=== PATIENT | female | born 2005 | race African-American/Black ===

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

== ENCOUNTER 2023-03-20 08:24 | Emergency (ER) | payer OTHER, SELFPAY ==
--- NOTE | ~2023-03-20 | XR_ITS ---
EXAMINATION: XR knee LT 3V DATE: 03/20/2023 09:14 INDICATION: Nontraumatic medial left knee pain with TECHNIQUE: Anteroposterior, oblique and crosstable lateral views of the left knee were obtained COMPARISON: None. FINDINGS: Alignment is normal. No fracture. No joint effusion/layering lipohemarthrosis. Soft tissues are unre markable. IMPRESSION: 1. Normal left knee radiographs Reviewed, dictated and finalized at location A.
[2023-03-20 08:30] VITALS: BP 148/75; PULSE 86; RESP 16; TEMP 36.7; O2SAT 100
[2023-03-20] MEDS: IBUPROFEN 600 MG TABLET PO (08:52)
--- NOTE | 2023-03-20 10:17 | ED.EXTPRO ---
HPI - Extremity Problem General Chief complaint: Extremity Problem,Nontraumatic Stated complaint: knee pain Time Seen by Provider: 03/20/23 08:37 History of Present Illness HPI Narrative: Patient is a 17-year-old female who presents ER with left knee pain. Worsening over last couple days. She works at [employer] and thinks she is having increased pain from her duties there where she is lifting boxes. No known trauma. No swelling. No numbness or tingling. She hurts mainly on the medial aspect when she is bearing weight. She has tried a knee wrap that her family member provided her. Related Data Home Medications Medication Instructions Recorded Confirmed sertraline 25 mg tablet 25 mg DIRECTED 11/27/22 11/27/22 drospirenone 3 mg-ethinyl tablet 12/24/22 estradiol 0.02 mg tablet Allergies Allergy/AdvReac Type Severity Reaction Status Date / Time nickel Allergy Unknown Other Verified 03/20/23 08:45 Review of Systems Constitutional: Constitutional: Denies chills and Denies fever(s) Musculoskeletal: Musculoskeletal: Reports arthralgias, Denies joint swelling and Denies muscle cramps Neurologic: Denies focal weakness, Denies numbness and Denies weakness PMFSH Past Medical History Medical History Menorrhagia Surgical History Surgical History No pertinent past surgical history Social History Social History Smoking status: Never smoker Alcohol intake: never Substance use: never Living arrangements: with family Occupation/Education: student Exam Narrative: GENERAL: Well-appearing, well-nourished, and in no acute distress. HEAD: Normocephalic, atraumatic. EXTREMITIES: Normal range of motion. No edema. Mild tenderness medial joint line left knee. Positive Apley grind test on the left side. SKIN: Warm, dry, no rash. NEURO: Alert and oriented x3. PSYCH: Normal mood and affect. Course Course Emergency Course: Patient resting comfortably and pain improving after anti-inflammatories. Discussed conservative treatment at home and patient verbalized understanding. Encouraged weight loss. Discussed need for follow-up with PCP or Ortho should symptoms persist. Vital Signs Vital signs: Vital Signs Temperature 98.1 F 03/20/23 08:30 Pulse Rate 86 03/20/23 08:30 Respiratory Rate 16 03/20/23 08:30 Blood Pressure 148/75 H 03/20/23 08:30 Pulse Oximetry 100 03/20/23 08:30 Temperature 98.1 F 03/20/23 08:30 Pulse Rate 60 03/20/23 10:30 Respiratory Rate 16 03/20/23 10:30 Blood Pressure 126/74 03/20/23 10:30 Pulse Oximetry 100 03/20/23 10:30 MDM - Extremity (Nontraumatic) Imaging Data Radiologist's impression: ITS Impressions Knee X-Ray 03/20/23 09:15 IMPRESSION: 1. Normal left knee radiographs Discharge Plan Discharge Clinical Impression: Knee pain Patient Disposition: Home, Self-Care Condition: Stable Instructions: Knee Pain (ED), P.R.I.C.E. Treatment (ED) Additional Instructions: Return the ER if you have increased pain, your knee becomes red and hot, you develop fever over 100.4 ?F, you have additional concerns. Prescriptions: New naproxen 375 mg tablet 375 mg PO BID Qty: 14 0RF No Action sertraline 25 mg tablet 25 mg DIRECTED drospirenone-ethinyl estradiol 3-0.02 mg tablet amoxicillin-pot clavulanate 875-125 mg tablet 1 tablet PO Q12H 10 Days Qty: 20 0RF Follow-up/Referrals: Jaxson Faust MD [Physician] - 1 Week UNKNOWN,DOCTOR [Primary Care Provider] - 1 Week Stand Alone Forms: Work/School Release IP
[2023-03-20 10:30] VITALS: BP 126/74; PULSE 60; RESP 16; O2SAT 100
== END 2023-03-20 10:45 | disposition home or self-care (01) ==
PROVIDERS: Emergency Provider Emergency Medicine
DX: M25.562 Pain in left knee (principal)
CPT/HCPCS: 73562; 99283; A9270

== ENCOUNTER 2023-06-12 14:37 | Observation (INO) | payer OTHER, SELFPAY ==
[2023-06-12] VITALS (14 sets, daily range): BP systolic 117–158; BP diastolic 61–81; PULSE 77–97; RESP 14–20; TEMP 36.4–37.1; O2SAT 100; BMI 46.2
--- NOTE | 2023-06-12 15:26 | ED.RECABL ---
HPI - Recheck/Abnormal Lab/Rx General Chief Complaint: Recheck/Abnormal Lab/Rx <Soledad Carbajal PA-C - Last Filed: 06/12/23 18:45> Stated Complaint: low hgb <CHARLOTTE Humphreys Last Filed: 06/12/23 18:45> Time Seen by Provider: 06/12/23 15:08 <CHARLOTTE Humphreys Last Filed: 06/12/23 18:45> Source: patient <CHARLOTTE Humphreys Last Filed: 06/12/23 18:45> Mode of arrival: ambulatory <CHARLOTTE Humphreys Last Filed: 06/12/23 18:45> Limitations: no limitations <CHARLOTTE Humphreys Last Filed: 06/12/23 18:45> History of Present Illness HPI narrative: This is a 17 year old female that presents to the ER for anemia. Reports history of heavy/abnormal menstrual bleeding. Reports she had some outpatient labs done this week with her PCP and was told to come to the ER because her hemoglobin is critically low. Does report current menstrual bleeding that is not heavy at the moment. Denies shortness of breath. <CHARLOTTE Humphreys Last Filed: 06/12/23 18:45> Related Data Home Medications: Home Medications Medication Instructions Recorded Confirmed drospirenone 3 mg-ethinyl See Rx Instructions .Route .COMPLEX 12/24/22 06/12/23 estradiol 0.02 mg tablet <CHARLOTTE Humphreys Last Filed: 06/12/23 18:45> Allergies/Adverse Reactions: Allergies Allergy/AdvReac Type Severity Reaction Status Date / Time nickel Allergy Unknown Other Verified 06/12/23 14:40 <CHARLOTTE Humphreys Last Filed: 06/12/23 18:45> Review of Systems Review of Systems: CONSTITUTIONAL: Denies fever RESPIRATORY: Denies dyspnea. NEUROLOGIC: Denies weakness. <CHARLOTTE Humphreys Last Filed: 06/12/23 18:45> All systems reviewed & are unremarkable except as noted in HPI and below <Soledad Carbajal PA-C - Last Filed: 06/12/23 18:45> [facility] Past Medical History Medical History: Medical History (Updated 06/13/23 @ 09:06 by Tello Cummings MD) Menorrhagia <Soledad Carbajal PA-C - Last Filed: 06/12/23 18:45> Surgical History Surgical History: Surgical History No pertinent past surgical history <CHARLOTTE Humphreys Last Filed: 06/12/23 18:45> Social History Social History: Social History Smoking status: Never smoker Alcohol intake: never Substance use: never Do You Feel Safe in your Home?: Yes Lack of Transportation: No Lack of Food: Never True Current Housing: I Have Housing Concerned About Future Housing: No Difficulty Paying Gas/Electric Bills: No Difficulty Paying for Meds: No Currently Unemployed: No Education: High School Diploma/GED Difficulty w/ Childcare or Family Care: No Living arrangements: with family Occupation/Education: student Spiritual care concerns: No <CHARLOTTE Humphreys Last Filed: 06/12/23 18:45> Exam Narrative: GENERAL: Well-appearing, well-nourished, and in no acute distress. HEAD: Normocephalic, atraumatic. EYES: EOMI. CHEST: Clear to auscultation. No respiratory distress. No wheezes rales or rhonchi HEART: Regular rate and rhythm. No murmur heard. Normal peripheral pulses. EXTREMITIES: Normal range of motion. No edema. SKIN: Warm, dry, no rash. NEURO: No focal deficits. Alert and oriented x3. PSYCH: Normal mood and affect PELVIC: Small to moderate amount of dark red blood in the vaginal vault <CHARLOTTE Humphreys Last Filed: 06/12/23 18:45> Course Course Emergency Course: Patient updated on her workup and need for admission. She does not have her control with her <CHARLOTTE Humphreys Last Filed: 06/12/23 18:45> VP PRODUCT/PA Physician Supervision For this patient encounter, I reviewed the VP PRODUCT or PA documentation, treatment plan, and medical decision making and/or I had [id number] time with this patient. I performed all aspects
[2023-06-12 15:38] LABS: Basophils Percent Auto 0.4 % (0.2-1.2); Eosinophils Absolute Auto 0.2 K/mm3 (0-0.3); Eosinophils Percent Auto 1.9 % (0-4.4); Immature Granulocyte Absolute 0.02 K/mm3 (0.00-0.031); Immature Granulocyte Percent A 0.2 % (0-0.5); Lymphocytes Absolute Auto 2.56 K/mm3 (0.9-3.2); Mean Corpuscular HGB Conc 28.2 g/dl (32-36); Mean Corpuscular Hemoglobin 19.5 pg (26-34); Mean Corpuscular Volume 69.1 fl (80-100); Monocytes Absolute Auto 0.5 K/mm3 (0.1-0.6); Monocytes Percent Auto 6.5 % (2.6-8.5); Neutrophils Absolute Auto 4.7 K/mm3 (1.3-6.7); Platelet Count Result 297 k/mm3 (150-375); Red Blood Count 2.98 M/mm3 (4.2-5.4); Red Cell Distribution Width 18.1 % (11.5-14.5)
[2023-06-12 15:48] LABS: Alanine Aminotransferase 26 U/L (6-35); Albumin Level 4.5 g/dL (3.7-5.6); Alkaline Phosphatase 69 U/L (45-116); Anion Gap 8 mmol/L (8-16); Aspartate Amino Transferase 39 U/L (14-36); Bilirubin,Total 0.6 mg/dL (0.2-1.3); Blood Urea Nitrogen 10 mg/dL (8-21); Calcium 9.1 mg/dL (8.9-10.7); Carbon Dioxide 26 mmol/L (22-30); Chloride 105 mmol/L (98-107); Estimated CRCL calculation 120 ml/min; Estimated Glomerular Filt Rate > 60; Glucose 98 mg/dL (65-110); Potassium 3.8 mmol/L (3.4-5.0); Sodium 139 mmol/L (134-143)
[2023-06-12 15:59] LABS: Hemoglobin 5.8 g/dL (12.0-15.0)
[2023-06-12 16:00] LABS: Hematocrit 20.6 % (37.0-47.0)
[2023-06-12 16:01] LABS: Platelet Estimate Adequate (Adequate)
[2023-06-12 16:02] LABS: Schistocytes None Seen (NORMAL)
[2023-06-12 16:03] LABS: Anisocytosis 3+ (NORMAL); Hypochromasia 1+ (NORMAL); Macrocytosis 2+ (NORMAL)
[2023-06-12] MEDS: SODIUM CHLORIDE 0.9% IV 250 ML 30 ML IV CONT (17:37)
[2023-06-12] MEDS: TUBING, BLOOD SET 1 EACH XX (17:37)
[2023-06-12] MEDS: SODIUM CHLORIDE 0.9% IV 250 ML 30 ML (21:30)
[2023-06-12] MEDS: TUBING, BLOOD PLUM PUMP TUBING 1 EACH XX (21:30)
--- NOTE | 2023-06-13 00:06 | PC.NURSE ---
Pt is a&o x4, able to make needs known. Pt received 1 unit of blood in ED, 2nd unit will be started shortly. Pt verbalizes understanding of admission, need for transfusion, orientation to room and call light. Pt advised to call if she needs anything. Pt's vitals stable. Pt is up ad bouchra. All questions answered.
[2023-06-13 00:36] VITALS: PULSE 79; RESP 16; O2SAT 100
--- NOTE | 2023-06-13 02:27 | PC.NURSE ---
urine sample sent to the lab
[2023-06-13 05:25] VITALS: BP 123/63; PULSE 78; RESP 14; TEMP 36.7; O2SAT 100
[2023-06-13 06:58] LABS: Basophils Percent Auto 0.4 % (0.2-1.2); Eosinophils Absolute Auto 0.1 K/mm3 (0-0.3); Eosinophils Percent Auto 1.4 % (0-4.4); Hematocrit 23.5 % (37.0-47.0); Hemoglobin 7.1 g/dL (12.0-15.0); Immature Granulocyte Absolute 0.03 K/mm3 (0.00-0.031); Immature Granulocyte Percent A 0.3 % (0-0.5); Immature Platelet Fraction Pct 6.6 % (0.9-11.2); Lymphocytes Absolute Auto 2.86 K/mm3 (0.9-3.2); Mean Corpuscular HGB Conc 30.2 g/dl (32-36); Mean Corpuscular Hemoglobin 21.7 pg (26-34); Mean Corpuscular Volume 71.9 fl (80-100); Mean Platelet Volume 11.4 fl (7.4-10.4); Monocytes Absolute Auto 0.6 K/mm3 (0.1-0.6); Monocytes Percent Auto 5.6 % (2.6-8.5); Neutrophils Absolute Auto 6.6 K/mm3 (1.3-6.7); Neutrophils Percent Auto 64.3 % (45.5-73.1); Platelet Count Result 251 k/mm3 (150-375); Red Blood Count 3.27 M/mm3 (4.2-5.4); White Blood Count 10.2 K/mm3 (4.5-10.0)
--- NOTE | 2023-06-13 08:34 | PM.IMHP ---
H&P: HPI History of Present Illness Date/Time: 06/13/23 08:34 Chief Complaint: abnormal vaginal bleeding Anemia Narrative: 17-year-old female who presents to the ER by referral from her primary care for any Yael. Patient saw her primary care physician with complaints of prolonged and heavy menses. Patient states her most recent cycle she bled from was 20 days. Patient's primary care ordered her hormonal contraceptive pills. Patient has not yet started the hormonal contraceptives. PCPs blood work returned severe anemia and she was instructed to come in for transfusion. Hemoglobin in the emergency room returned back at 5. Patient received blood transfusion in the emergency room. She was observed overnight. She denies any vaginal bleeding overnight. Patient feels better symptomatically this morning. Review of Systems Review of Systems: All systems reviewed & are unremarkable except as noted in HPI and below PMFSH Past Medical History Medical History (Updated 06/13/23 @ 09:06 by Tello Cummings MD) Menorrhagia Surgical History Surgical History No pertinent past surgical history Social History Social History Smoking status: Never smoker Alcohol intake: never Substance use: never Lack of Transportation: No Lack of Food: Never True Current Housing: I Have Housing Concerned About Future Housing: No Difficulty Paying Gas/Electric Bills: No Difficulty Paying for Meds: No Currently Unemployed: No Education: High School Diploma/GED Difficulty w/ Childcare or Family Care: No Living arrangements: with family Occupation/Education: student Spiritual care concerns: No Meds Home Medications and Allergies Home Medications Medication Instructions Recorded Confirmed Type drospirenone 3 mg-ethinyl See Rx Instructions .Route .COMPLEX 12/24/22 06/12/23 History estradiol 0.02 mg tablet Allergies Allergy/AdvReac Type Severity Reaction Status Date / Time nickel Allergy Unknown Other Verified 06/12/23 14:40 Vital Signs Vital Signs - 24 hr 06/12/23 14:47 06/12/23 16:20 06/12/23 16:22 Temperature 97.6 F Pulse Rate 81 97 88 Respiratory Rate 17 15 20 Blood Pressure 158/81 H 146/71 H Pulse Oximetry 100 100 100 Oxygen Delivery 06/12/23 16:30 06/12/23 16:31 06/12/23 17:36 Temperature 97.7 F Pulse Rate 82 77 94 Respiratory Rate 16 20 20 Blood Pressure 122/61 119/61 Pulse Oximetry 100 100 100 Oxygen Delivery 06/12/23 17:52 06/12/23 18:52 06/12/23 19:52 Temperature 98.0 F 98.1 F 98.4 F Pulse Rate 80 82 93 Respiratory Rate 18 16 16 Blood Pressure 130/76 141/80 H 126/74 Pulse Oximetry 100 100 100 Oxygen Delivery 06/12/23 21:24 06/12/23 21:33 06/12/23 21:55 Temperature 98.3 F 98.8 F 98.5 F Pulse Rate 89 87 87 Respiratory Rate 14 16 16 Blood Pressure 129/69 124/61 117/68 Pulse Oximetry 100 100 100 Oxygen Delivery 06/12/23 22:55 06/12/23 23:55 06/13/23 00:36 Temperature 98.7 F 98.1 F Pulse Rate 85 79 79 Respiratory Rate 15 16 16 Blood Pressure 133/67 127/67 Pulse Oximetry 100 100 100 Oxygen Delivery Room Air 06/13/23 05:25 Temperature 98.1 F Pulse Rate 78 Respiratory Rate 14 Blood Pressure 123/63 Pulse Oximetry 100 Oxygen Delivery Exam Const: General: cooperative, comfortable, no acute distress and obese Resp: Effort & Inspection: normal respiratory effort and able to speak in complete sentences Cardio: Rate: regular rate GI: Inspection: obesity GI Palp: No abdominal tenderness and Yes Soft to palpation Psych: Appearance: grossly normal Mental Status: mental status grossly normal Speech and movement: Normal speech and movement present H&P: Results Labs Labs: Short CBC 06/12/23 Range/Units 15:29 WBC 8.0 (4.5-10.0) K/mm3 Hgb 5.8 L* D (12.0-15.0) g/dL Hct 20.6 L* (37.0-
[2023-06-13 08:40] LABS: Hypochromasia 2+ (NORMAL); Platelet Estimate Adequate (Adequate)
[2023-06-13 08:41] LABS: Anisocytosis 2+ (NORMAL); Large Platelets Present; Schistocytes Rare (NORMAL)
--- NOTE | 2023-06-13 10:56 | PM.DS ---
DS: Admitting Diagnosis Discharge Date Admitting Diagnosis anemia abnormal vaginal bleeding DS: Discharge Diagnosis Discharge Diagnosis (1) Menorrhagia: Code(s): N92.0 - Excessive and frequent menstruation with regular cycle Status: Acute (2) Anemia: Qualifiers: Anemia type: unspecified type Qualified Code(s): D64.9 - Anemia, unspecified Code(s): D64.9 - Anemia, unspecified Status: Acute DS: Summary Hospital Course Hospital Course: 17-year-old female with abnormal uterine bleeding and menorrhagia. Patient has heavy bleeding led to symptomatic anemia requiring transfusion. Patient was started on hormonal contraception. Patient did not have any bleeding overnight. Patient received blood transfusion. Vital signs remained stable. Patient discharged on iron supplementation Time Spent with Patient Time attestation: Total time spent providing and/or coordinating discharge services: Exam Const: General: cooperative, comfortable and no acute distress Resp: Effort & Inspection: normal respiratory effort and able to speak in complete sentences Cardio: Rate: regular rate GI: Inspection: obesity GI Palp: No abdominal tenderness and Yes Soft to palpation Psych: Appearance: grossly normal Mental Status: mental status grossly normal Speech and movement: Normal speech and movement present DS: Data Data Completed and Pending Labs on day of discharge: Labs from last 24 hours 06/13/23 06/12/23 06:14 15:29 WBC 10.2 H 8.0 RBC 3.27 L 2.98 L Hgb 7.1 L 5.8 L* D Hct 23.5 L 20.6 L* MCV 71.9 L 69.1 L MCH 21.7 L D 19.5 L MCHC 30.2 L 28.2 L RDW 19.0 H 18.1 H Plt Count 251 297 MPV 11.4 H 11.0 H Immature Gran % (Auto) 0.3 0.2 Neut % (Auto) 64.3 59.0 Lymph % (Auto) 28.0 32.0 Bullock % (Auto) 5.6 6.5 Eos % (Auto) 1.4 1.9 Baso % (Auto) 0.4 0.4 Lymph # (Auto) 2.86 2.56 Bullock # (Auto) 0.6 0.5 Eos # (Auto) 0.1 0.2 Baso # (Auto) 0.0 0.0 Abs Immat Gran (auto) 0.03 0.02 Absolute Neuts (auto) 6.6 4.7 Absolute Nucleated RBC 0.0 0.0 Nucleated RBC % 0.0 0.0 Platelet Estimate Adequate Adequate Large Platelets Present % Immature Plt Fraction 6.6 Hypochromasia 2+ 1+ Anisocytosis 2+ 3+ Macrocytosis 2+ Schistocytes Rare None seen Sodium 139 Potassium 3.8 Chloride 105 Carbon Dioxide 26 Anion Gap 8 BUN 10 Creatinine 0.90 Estim Creat Clear Calc 120 Estimated GFR > 60 Glucose 98 Calcium 9.1 Total Bilirubin 0.6 AST 39 H ALT 26 Alkaline Phosphatase 69 Total Protein 8.0 Albumin 4.5 Blood Type A Positive Antibody Screen Negative Crossmatch See Detail Discharge Plan Discharge Consulting providers: Soledad Carbajal Discharging Clinician: Tello Cummings Patient Disposition: Home, Self-Care Activity: as tolerated Diet: regular Patient Instructions: Antibiotic Form Stand Alone Forms: General Discharge Information Follow-up/Referrals: Tello Cummings MD [Physician] - 6 Weeks Discharge Medications: Continued drospirenone-ethinyl estradiol 3-0.02 mg tablet See Rx Instructions .ROUTE .COMPLEX Rx Instructions: 3-0.02mg Date of admission: 06/12/23 20:47 Primary Care Provider: PHYSICIAN NOT ON STAFF,NONSTAFF Admitting Provider: Tello Cummings Attending physician on admission: Tello Cummings Condition: Stable
[2023-06-13 11:26] LABS: Appearance Urine Cloudy (Clear); Bacteria Urine 3+ /hpf; Bilirubin Urine Negative (Negative); Blood Urine 3+ (Negative); Color Urine Yellow (Yellow); Glucose Urine UA Negative (Negative); Ketones Urine Negative (Negative); Leukocyte Esterase Ur Trace LEU/UL (NEGATIVE); Nitrate Urine Positive (Negative); Non Pathogenic Casts 0-2; Protein Urine 2+ mg/dL (Negative); Specific Grav Ur 1.015 (1.001-1.035); Squamous Epithelial Cell Urine None seen /hpf (Few); Urobilinogen Urine 0.2 mg/dL (<2.0); pH Urine 5.5 (5.0-9.0)
[2023-06-13 11:45] LABS: Add Urine Microscopic? YES
== END 2023-06-13 13:20 | disposition home or self-care (01) ==
LOC: ANHED 18:45 → ANH3MEDSUR 21:07
PROVIDERS: Student in an Organized Health Care Education/Training Program; Admitting Provider Student in an Organized Health Care Education/Training Program; Emergency Provider Physician Assistant; Visit Provider Student in an Organized Health Care Education/Training Program
DX: N92.0 Excessive and frequent menstruation with regular cycle (principal); D64.9 Anemia, unspecified; Z79.3 Long term (current) use of hormonal contraceptives; Z79.899 Other long term (current) drug therapy
CPT/HCPCS: 36415; 36430; 80053; 81001; 81025; 85025; 85055; 86850; 86900; 86901; 86923; 99285; G0378; J7050; P9016